=== PATIENT | female | born 1990 | race Two or more races ===

== ENCOUNTER 2016-12-06 01:03 | Emergency (ER) | payer OTHER ==
[~2016-12-06] VITALS: Ht 170.2 cm; Wt 109.3 kg
[2016-12-06] MEDS ORDERED: IBUPROFEN 600 MG TAB PO ONE ×2 (01:47→02:00)
[2016-12-06 01:50] VITALS: BP 130/85
== END 2016-12-06 04:15 | disposition home or self-care (01) ==
LOC: ER 01:14
DX: S02.2XXA Fracture of nasal bones, initial encounter for closed fracture (principal); S00.83XA Contusion of other part of head, initial encounter; W22.8XXA Striking against or struck by other objects, initial encounter; Y93.89 Activity, other specified; Y92.89 Other specified places as the place of occurrence of the external cause; Y99.8 Other external cause status
CPT/HCPCS: 70486; 81025

== ENCOUNTER 2019-09-05 22:04 | Emergency (ER) | payer MEDICAID, OTHER ==
[~2019-09-05] VITALS: Ht 167.6 cm; Wt 93.0 kg
[2019-09-05 23:48] VITALS: BP 120/78
== END 2019-09-06 00:30 | disposition home or self-care (01) ==
LOC: ER 22:07
DX: S61.031A Puncture wound without foreign body of right thumb without damage to nail, initial encounter (principal); S83.92XA Sprain of unspecified site of left knee, initial encounter; T44.5X1A Poisoning by predominantly beta-adrenoreceptor agonists, accidental (unintentional), initial encounter; X58.XXXA Exposure to other specified factors, initial encounter; Y93.89 Activity, other specified; Y92.89 Other specified places as the place of occurrence of the external cause; Y99.8 Other external cause status

== ENCOUNTER 2024-06-27 23:49 | Emergency (ER) | payer MEDICAID, OTHER ==
[~2024-06-27] VITALS: Ht 167.6 cm; Wt 140.7 kg
[2024-06-28] MEDS: SODIUM CHLORIDE 0.9% 1,000 ML IV ONE (00:37)
[2024-06-28] MEDS: ACETAMINOPHEN 325 MG TAB PO ONE (00:46)
[2024-06-28] MEDS: KETOROLAC TROMETH 30 MG/ML 1ML VIAL IV ONE (00:46)
[2024-06-28] MEDS: METOCLOPRAMIDE HCL 5MG/ml INJ 2ml VIAL IV ONE (00:46)
--- NOTE | 2024-06-28 00:47 | ED.PDOC ---
History of Present Illness HPI Comments 34 year-old, morbidly obese female, with a history of migraines s/p spinal tap, presents with c/o headache, nausea, and vomiting, today. Patient endorses on sudden onset of symptoms, last night, that began with a headache, while resting in bed, with additional onset of remaining symptoms after standing up af terwards. She describes her headache being mark to her "head exploding" in addition to having some relief whenever laying down and reporting on recent spinal tap procedure for chronic migraines on 06/26/24. She states further on needing a blood patch for possible "fluid leakage" after consulting with [facility] phone line and another non-[facility] affiliated "pro vider," earlier, prior to arrival. She denies having any abdominal pain, vision or speech changes, fever, chills, or other associated symptoms or modifiers at this time. Upon arrival to ED, patient had a blood pressure of 166/102 and a pulse rate of 81. Chief Complaint: Headache Time Seen by MD: 00:25 Primary Care Provider: RIKKI AGUILAR Reviewed Notes: Nurses Notes, Medications, Allergies Allergies: Coded Allergies: NSAIDs (Verified Allergy, Unknown, 06/28/24) GASTRIC SLEEVE Information Source: Patient Mode of Arrival: Ambulatory Severity: Moderate Timing: Hours Duration: Since onset Prehospital treatment: None Past Medical History Past Medical History (Other): migraines, morbid obesity Surgical History: Cholecystectomy Surgical History (Other): spinal tap, gastric sleeve [employer] History: No Pertinent [employer] History Family History Family History: Reviewed,noncontributory to illness Social History Smoker: Non-Smoker Alcohol: Denies ETOH Use Drugs: Denies Drug Use Lives In: Home All Other Systems: Reviewed and Negative (Comprehensive review of systems are negative unless otherwise stated in HPI) Physical Exam General Appearance: No Apparent Distress, Obese HEENT: Normal ENT Inspection, Pharynx Normal, TMs Normal Neck: Full Range of Motion, Non-Tender, Normal, Normal Inspection Respiratory: Chest Non-Tender, Lungs Clear, No Accessory Muscle Use, No Respiratory Distress, Normal Breath Sounds Cardiovascular: No Edema, No JVD, No Murmur, No Gallop, Normal Peripheral Pulses, Regular Rate/Rhythm Breast Exam: Deferred Gastrointestinal: No Organomegaly, Non Tender, No Pulsatile Mass, Normal Bowel Sounds, Soft Genitalia: Deferred Pelvic: Deferred Rectal: Deferred Extremities: No calf tenderness, Normal capillary refill, Normal inspection, Normal range of motion, Non-tender, No pedal edema Musculoskeletal : Apperance: Normal Neurologic: Alert, foreign agent II-XII nml as Tested, No Motor Deficits, Normal Affect, Normal Mood, No Sensory Deficits Cerebellar Function: Normal Reflexes: Normal Skin: Dry, Normal Color, Warm Lymphatic: No Adenopathy Was a procedure done? Was a procedure done?: No Differential Dx Considerations may include: post-op (spinal tap) complication, migraines X-Ray, Labs, Meds, VS Vital Signs Date Time Temp Pulse Resp B/P (MAP) Pulse Ox O2 Delivery O2 Flow Rate FiO2 06/28/24 00:05 97.5 81 16 166/102 (123) 100 97.5 Time of 1ST Reevaluation: 00:55 Reevaluation 1ST: Unchanged Patient Education/Counseling: Diagnosis, Treatment Family Education/Counseling: No Family Present Additional Information Previous visit documents reviewed: September 05, 2019 encounter for accidental injection of epinephrine The following tests were ordered, and results were reviewed by me: n/a Additional Information was gathered from interviewing the following independent historians: n/a I reviewed and agreed with the following test results read by other providers: n/a I discussed treatment and results with medical personnel and: Patient Critical Care Note Critical Care Time?: No Stability Stability form required: No Heart Score Heart Score: Heart Score Response (Comments) Value History N/A 0 EKG N/A 0 Age N/A 0 Risk Factors N/A 0 Troponin N/A 0 Total 0 I personally scribed for HARPAL FUENTES MD ([email or web address]) on 06/28/24 at 00:47. Electronically submitted by Pankaj Orozco ([email or web address]). HARPAL FUENTES MD Jun 28, 2024 00:47
[2024-06-28 01:06] VITALS: BP 153/72; PULSE 91; RESP 18; TEMP 99.2; O2SAT 98
== END 2024-06-28 01:11 | disposition left against medical advice (07) ==
LOC: ER 23:54
DX: R51.9 Headache, unspecified (principal); R11.2 Nausea with vomiting, unspecified; E66.01 Morbid (severe) obesity due to excess calories; Z90.49 Acquired absence of other specified parts of digestive tract; Z98.890 Other specified postprocedural states; Z79.1 Long term (current) use of non-steroidal anti-inflammatories (NSAID); Z68.43 Body mass index [BMI] 50.0-59.9, adult
CPT/HCPCS: 96361; 96374; 96375; 99284; J1885; J2765; J7030